=== PATIENT | female | born 1995 | race Caucasian/White ===

== ENCOUNTER 2017-03-26 15:40 | Inpatient (IN) | payer OTHER ==
[2017-03-26] VITALS (7 sets, daily range): BP systolic 104–126; BP diastolic 56–71
[~2017-03-26] VITALS: Ht 157.5 cm; Wt 96.0 kg
[~2017-03-26 15:40] MED LIST: DOCUSATE CALCI240 MG PO; ENDOCET 5-3251 EACH PO; FIORICET 50-301 EACH PO; IBUPROFEN800 MG PO; JUNEL FE 1/21 TABLET PO; LORCET 5-325 M1 EACH PO; METAMUCIL PACKE1 PKT PO; MIRALAX255 GM PO; MOBIC15 MG PO; SENNA8.6 M1 PO; ZOFRAN ODT8 MG PO
[2017-03-26] MEDS ORDERED: PRENATAL TABLE1 EAC3 PO (16:39)
[2017-03-26 18:16] LABS: EOSINOPHIL (%) 0.9 % (0-5); EOSINOPHIL COUNT 0.1 K/uL (0-0.3); HEMATOCRIT 31.2 % (36.0-46.0); IMMATURE GRANULOCYTE (%) 0.6 % (0.0-0.7); IMMATURE GRANULOCYTE COUNT 0.1 K/uL; INSTRUMENT ABS NEUTROPHIL CT 9.8 K/uL; LYMPHOCYTE COUNT 1.8 K/uL (1.0-2.8); MCH 24.4 PG (29.0-34.0); MCHC 31.4 G/DL (30.0-36.0); MCV 77.6 FL (83-99); MEAN PLAT.VOLUME 11.1 uM^3 (9.5-12.4); MONOCYTE (%) 4.4 % (3-12); MONOCYTE COUNT 0.6 K/uL (0-0.8); NEUTROPHIL (%) 79.5 % (45-76); NEUTROPHIL COUNT 9.8 K/uL (1.8-6.4); PLATELET COUNT 357 K/uL (156-360); RBC DIS.WIDTH-CV 14.5 % (11.8-14.6); RBC DIS.WIDTH-SD 40.9 % (39-53); RED BLOOD COUNT 4.02 M/uL (3.80-5.20); WHITE BLOOD COUNT 12.4 K/uL (4.1-10.2)
[2017-03-26 19:45] LABS: ADD MIUA? YES; BILIRUBIN NEGATIVE; BLOOD NEGATIVE; COLOR YELLOW ((YELLOW)); GLUCOSE (STRIP) NEGATIVE; KETONES NEGATIVE; LEUKOCYTES MODERATE; NITRITE NEGATIVE; PROTEIN (STRIP) NEGATIVE; SPECIFIC GRAVITY 1.005 (1.000-1.030); UROBILINOGEN 0.2 MG/DL (0.2-1.0)
[2017-03-26 20:09] LABS: RED BLOOD CELLS 0-5 /HPF (0-5)
[2017-03-26 20:10] LABS: BACTERIA 2+ /HPF; EPITHELIAL CELLS 2+ /HPF; MUCUS RARE /LPF; UCUL ADDED? YES
[2017-03-27] VITALS (40 sets, daily range): BP systolic 94–160; BP diastolic 46–92
[2017-03-27] MEDS ORDERED: IBUPROFEN800 MG PO (11:51)
[2017-03-28 08:05] VITALS: BP 110/56
== END 2017-03-28 16:00 | disposition home or self-care (01) | DRG 775 ==
LOC: LDRP-OP 15:40 → 2WEST 15:41 → LDRP-OP 05-06 16:22
PROVIDERS: Obstetrics & Gynecology
PROC: 00HU33Z Insertion of Infusion Device into Spinal Canal, Percutaneous Approach (ICD-10-PCS; principal; 2017-03-27)
PROC: 3E0R3CZ (ICD-10-PCS; principal; 2017-03-27)
PROC: 3E0P7GC Introduction of Other Therapeutic Substance into Female Reproductive, Via Natural or Artificial Opening (ICD-10-PCS; principal; 2017-03-27)
PROC: 3E033VJ Introduction of Other Hormone into Peripheral Vein, Percutaneous Approach (ICD-10-PCS; principal; 2017-03-27)
PROC: 10E0XZZ Delivery of Products of Conception, External Approach (ICD-10-PCS; principal; 2017-03-27)
DX: O77.8 Labor and delivery complicated by other evidence of fetal stress (principal); O99.334 Smoking (tobacco) complicating childbirth; F17.210 Nicotine dependence, cigarettes, uncomplicated; O69.81X0 Labor and delivery complicated by cord around neck, without compression, not applicable or unspecified; Z3A.38 38 weeks gestation of pregnancy; Z37.0 Single live birth
CPT/HCPCS: 81003; 85025; 87086; C1755; G0378; J0595; J1050; J3010; J7120